=== PATIENT | female | born 1965 | race Caucasian/White ===

== ENCOUNTER → 2020-07-12 | Outpatient (CLI) | payer OTHER ==
[~2020-07-12] MED LIST: BENA20TA54 PO; LEVO25TA4 PO; MULT-758 PO; SERT50TA28 PO; SIMV10TA18 PO
[2020-07-12 11:22] LABS: ANION GAP 5 mmol/L (5-15); BILIRUBIN,TOTAL 0.3 mg/dL (0.2-1.0); CALCIUM 9.7 mg/dL (8.5-10.1); CHLORIDE 108 mmol/L (98-107); CREATININE 0.77 mg/dL (0.55-1.02)
[2020-07-12 11:23] LABS: ALANINE AMINOTRANSFERASE 62 U/L (12-78); ALBUMIN 4.2 g/dL (3.4-5.0); ALKALINE PHOSPHATASE 124 U/L (45-117); TOTAL PROTEIN 7.8 g/dL (6.4-8.2)
== END | disposition home or self-care (01) ==
LOC: STAR 09:01
PROVIDERS: ATTEND Orthopaedic Surgery Hand Surgery
DX: Z01.812 Encounter for preprocedural laboratory examination (principal); Z20.828 Contact with and (suspected) exposure to other viral communicable diseases; S63.391D Traumatic rupture of other ligament of right wrist, subsequent encounter; X58.XXXD Exposure to other specified factors, subsequent encounter
CPT/HCPCS: 80053; 87635

== ENCOUNTER 2020-07-17 05:33 | Day surgery (SDC) | payer OTHER ==
[~2020-07-17] VITALS: Ht 170.2 cm; Wt 99.8 kg
[2020-07-17] MEDS ORDERED: BUPIVACAINE/PF 0.5% ONE (06:09)
[2020-07-17 06:20] VITALS: BP 141/86
[2020-07-17] MEDS ORDERED: CHLORHEXIDINE 15 ML UDC ONE (06:25)
[2020-07-17] MEDS ORDERED: CHLORHEXIDINE 15 ML UDC MM ONE (06:30)
[2020-07-17] MEDS ORDERED: LACTATED RINGERS 1,000 ML IV SCH (06:30)
[2020-07-17] MEDS ORDERED: ROCURONIUM 10MG/ML,5ML ONE (06:58)
[2020-07-17] MEDS ORDERED: LIDOCAINE-MPF 2% ,5ML ONE (06:58)
[2020-07-17] MEDS ORDERED: GLYCOPYRROLATE 0.2MG/1ML, 5ML ONE (06:58)
[2020-07-17] MEDS ORDERED: FENTANYL PF 250 MCG/5ML ONE (06:58)
[2020-07-17] MEDS ORDERED: DEXAMETHASONE 4 MG/ML, 1ML ONE (06:58)
[2020-07-17] MEDS ORDERED: MIDAZOLAM 1 MG/ML, 5ML ONE (06:58)
[2020-07-17] MEDS ORDERED: PROPOFOL 10 MG/ML, 20ML ONE (06:58)
[2020-07-17] MEDS ORDERED: LORazepam 2 MG/ML, 1ML IVPush PRN (08:00)
[2020-07-17] MEDS ORDERED: METOCLOPRAMIDE 5 MG/ML, 2ML IVPush PRN (08:00)
[2020-07-17] MEDS ORDERED: OXYcodone 5 MG/5 ML ORAL.SOL UDC PO PRN (08:00)
[2020-07-17] MEDS ORDERED: KETOROLAC 30 MG/1 ML IVPush PRN (08:00)
[2020-07-17] MEDS ORDERED: EPHEDRINE 50 MG/ML, 1ML IVPush PRN (08:00)
[2020-07-17] MEDS ORDERED: METHOCARBAMOL 1,000 MG in DEXTROSE 5% 100 ML IV PRN (08:00)
[2020-07-17] MEDS ORDERED: DIAZEPAM 5 MG/ML, 2ML IVPush PRN (08:00)
[2020-07-17] MEDS ORDERED: ONDANSETRON 2MG/ML, 2ML IVPush PRN (08:00)
[2020-07-17] MEDS ORDERED: MIDAZOLAM 1 MG/ML, 2ML IV PRN (08:00)
[2020-07-17] MEDS ORDERED: HYDROmorphone 1 MG/ML, 1ML INJ IVPush PRN (08:00)
[2020-07-17] MEDS ORDERED: HYDROcodone/APAP 7.5-325MG/15ML UDC PO PRN (08:00)
[2020-07-17] MEDS ORDERED: hydrALAzine 20 MG/ML, 1ML IV PRN (08:00)
[2020-07-17] MEDS ORDERED: ACETAMINOPHEN 325 MG TABLET PO PRN (08:00)
[2020-07-17] MEDS ORDERED: ALBUTEROL/IPRATROPIUM 2.5MG/0.5MG, 3 ML NPPB PRN (08:00)
[2020-07-17] MEDS ORDERED: MEPERIDINE/PF 25MG/0.5ML IVPush PRN (08:00)
[2020-07-17] MEDS ORDERED: EPHEDRINE 50 MG/ML, 1ML IM PRN (08:00)
[2020-07-17] MEDS ORDERED: HALOPERIDOL 5 MG/ML IV PRN (08:00)
[2020-07-17] MEDS ORDERED: DIPHENHYDRAMINE 50 MG/ML, 1ML IVPush PRN (08:00)
[2020-07-17] MEDS ORDERED: FENTANYL PF 100 MCG/2ML ONE ×2 (09:00→09:20)
[2020-07-17] MEDS ORDERED: ACETAMINOPHEN 650 MG/20.3 ML UDC ONE (09:00)
[2020-07-17] MEDS ORDERED: OXYcodone 5 MG/5 ML ORAL.SOL UDC ONE (09:01)
[2020-07-17] MEDS: FENTANYL PF 100 MCG/2ML IV PRN ×3 (09:04→09:22)
[2020-07-17] MEDS ORDERED: LABETALOL 5MG/ML, 20ML ONE (09:13)
[2020-07-17] MEDS: LABETALOL 5MG/ML, 20ML IV PRN ×2 (09:16→09:32)
[2020-07-17] MEDS ORDERED: CEFAZOLIN 1,000 MG ONE (10:27)
== END 2020-07-17 13:10 | disposition home or self-care (01) ==
LOC: OUT 05:33
PROVIDERS: ATTEND Orthopaedic Surgery Hand Surgery
DX: S63.391A Traumatic rupture of other ligament of right wrist, initial encounter (principal); M77.11 Lateral epicondylitis, right elbow; M77.12 Lateral epicondylitis, left elbow; I10 Essential (primary) hypertension; E03.9 Hypothyroidism, unspecified; F41.9 Anxiety disorder, unspecified; E66.9 Obesity, unspecified; Z79.890 Hormone replacement therapy; Z79.891 Long term (current) use of opiate analgesic; Z79.899 Other long term (current) drug therapy; X58.XXXA Exposure to other specified factors, initial encounter; Y93.89 Activity, other specified; Y92.89 Other specified places as the place of occurrence of the external cause; Y99.8 Other external cause status
CPT/HCPCS: 25320; 73100; C1713; C1776; J0690; J1100; J2250; J2704; J3010; J7120; 76000